=== PATIENT | female | born 1935 | race Caucasian/White ===

== ENCOUNTER 2016-12-16 03:47 | Inpatient (IN) | payer MEDICARE ==
[2016-12-16] VITALS (25 sets, daily range): BP systolic 75–120; BP diastolic 47–86; PULSE 102–165; RESP 16–20; TEMP 97.4–98.3; O2SAT 92–100
[~2016-12-16] VITALS: Ht 162.6 cm; Wt 90.0 kg
[~2016-12-16 03:47] MED LIST: AZOP1SUS RIGHT EYE; BUDE.25I INH; BYST10TA2 PO; DILT180C56 OR; DYAZ37.57 PO; FLON0.053; LUMI0.01 RIGHT EYE; RALO1TAB13 PO; RANI150T PO; STOO100T PO; TRAM50TA PO
--- NOTE | 2016-12-16 04:07 | PD ---
HPI Chief Complaint: Hip Injury Time Seen by Provider: 03:50 Travel History International Travel<30 days: No Contact w/Intl Traveler<30days: No Traveled to known affect area: No History of Present Illness HPI This is an 81-year-old female who presents to the emergency department having had a mechanical fall in her bathroom when she was going to empty out her outside commode. She is reporting severe pain in both of her hips, constant, worse with moving, improved with rest. She did not hit her head but she is on Eliquis. PFSH Past Medical History Arthritis: Yes Asthma: Yes Heart Rhythm Problems: Yes Cancer: No Cardiovascular Problems: Yes COPD: Yes Diminished Hearing: No Endocrine: No GERD: Yes Genitourinary: Yes (INCONTINENCE) Hypertension: Yes Immune Disorder: No Implanted Vascular Access Dvce: Yes Musculoskeletal: Yes Neurologic: Yes Psychiatric: No Reproductive: No Respiratory: Yes Ulcer: Yes Tetanus Vaccination: Unknown Influenza Vaccination: Yes Past Surgical History Abdominal Surgery: Yes (RORO) Body Medical Devices: AMANDA EYE LENS Joint Replacement: Yes (RT KNEE) Oral Surgery: Yes (T&A ; EGD) Social History Alcohol Use: No Tobacco Use: No Substance Use: No Allergies-Medications (Allergen,Severity, Reaction): Coded Allergies: Latex (Verified Allergy, Mild, SLIGHT REACTION TO LATEX BANDAIDE, 12/16/16) Reported Meds & Prescriptions Reported Meds & Active Scripts Active Reported Lumigan (Bimatoprost) 0.01 % Peg 1 Drop RIGHT EYE HS Azopt (Brinzolamide) 1 % Marjorie 1 Drop RIGHT EYE AM Pulmicort (Budesonide) 0.25 Mg/2 Ml Marjorie 0.25 Mg INH DAILY Flonase (Fluticasone Propionate) 0.05 % Naspr 2 Spr NA DAILYPRN 2 SPRAYS EACH NOSTRIL Tramadol Hcl (Tramadol HCl) 50 Mg Tab 50 Mg PO DIRECTED Ranitidine Hcl (Ranitidine HCl) 150 Mg Cap 150 Mg PO Diltiazem Cd (Diltiazem HCl) 180 Mg Cap 180 Mg OR DAILY Dyazide (Triamterene/HCTZ) 37.5 Mg/25 Mg Cap 37.5 - PO DAILY 37.5MG/25MG 1 TAB DAILY Bystolic (Nebivolol) 10 Mg Tab 10 Mg PO DAILY Evista (Raloxifene HCl) 60 Mg Tab 60 Mg PO DAILY Stool Softener-Docusate (Docusate Sodium) 100 Mg Cap 100 Mg PO DIRECTED Review of Systems Except as stated in HPI: all other systems reviewed are Neg Physical Exam Narrative GENERAL:Well appearing, no acute distress SKIN: Warm and dry. HEAD: Atraumatic. Normocephalic. EYES: Pupils equal and round. No injection or drainage. ENT: Moist mucous membranes NECK: Trachea midline. CARDIOVASCULAR: Regular rate and rhythm. No murmur appreciated. 1+ bilateral pitting edema. 2+ DP pulses bilaterally. RESPIRATORY: Clear to auscultation. Breath sounds equal bilaterally. GASTROINTESTINAL: Abdomen soft, non-tender, nondistended. MUSCULOSKELETAL: Pain with flexion of the right hip. Right lower extremity is shortened and rotated. NEUROLOGICAL: Awake and alert. No obvious cranial nerve deficits. Moving all extremities. PSYCHIATRIC: Appropriate mood and affect; insight and judgment normal. Data Data Last Documented VS Vital Signs Date Time Temp Pulse Resp B/P Pulse Ox O2 Delivery O2 Flow Rate FiO2 12/16/16 06:28 114 16 114/80 98 Room Air 12/16/16 03:51 97.9 Orders Complete Blood Count With Diff (12/16/16 03:50) Comprehensive Metabolic Panel (12/16/16 03:50) Prothrombin Time / Inr (Pt) (12/16/16 03:50) Act Partial Throm Time (Ptt) (12/16/16 03:50) Hip, Ap Only W Ap Pelvis (12/16/16 ) Knee, Ltd (1 Or 2vws) (12/16/16 ) Knee, Ltd (1 Or 2vws) (12/16/16 ) Electrocardiogram (12/16/16 ) Diltiazem Cd (Cardizem Cd) (12/16/16 04:30) Diltiazem Inj (Cardizem Inj) (12/16/16 05:30) Diltiazem Inj (Cardizem Inj) (12/16/16 06:15) Admit Order (Ed Use Only) (12/16/16 06:33) Labs Laboratory Tests Test 12/16/16 04:10 White Blood Count 9.3 TH/MM3 Red Blood Count 4.43 MIL/MM3 Hemoglobin 12.6 GM/DL Hematocrit 38.2 % Mean Corpuscular Volume 86.2 FL Mean Corpuscular Hemoglobin 28.4 PG Mean Corpuscular Hemoglobin 32.9 % Concent Red Cell Distribution Width 15.4 % Platelet Count 141 TH/MM3 Mean Platelet Volume 8.4 FL Neutrophils (%) (Auto) 73.3 % Lymphocytes (%) (Auto) 20.1 % Monocytes (%) (Auto) 5.1 % Eosinophils (%) (Auto) 0.9 % Basophils (%) (Auto) 0.6 % Neutrophils # (Auto) 6.8 TH/MM3 Lymphocytes # (Auto) 1.9 TH/MM3 Monocytes # (Auto) 0.5 TH/MM3 Eosinophils # (Auto) 0.1 TH/MM3 Basophils # (Auto) 0.1 TH/MM3 CBC Comment DIFF FINAL Differential Comment Prothrombin Time 12.8 SEC Prothromb Time International 1.2 RATIO Ratio Activated Partial 25.2 SEC Thromboplast Time Sodium Level 135 MEQ/L Potassium Level 4.2 MEQ/L Chloride Level 101 MEQ/L Carbon Dioxide Level 22.7 MEQ/L Anion Gap 11 MEQ/L Blood Urea Nitrogen 34 MG/DL Creatinine 2.35 MG/DL Estimat Glomerular Filtration 20 ML/MIN Rate Random Glucose 88 MG/DL Calcium Level 9.5 MG/DL Total Bilirubin 1.1 MG/DL Aspartate Amino Transf 20 U/L (AST/SGOT) Alanine Aminotransferase 13 U/L (ALT/SGPT) Alkaline Phosphatase 62 U/L Total Protein 7.5 GM/DL Albumin 3.9 GM/DL [facility] Medical Decision Making Medical Screen Exam Complete: Yes Emergency Medical Condition: Yes Interpretation(s) afebrile, tachycardic, normotensive no leukocytosis renal insufficiency ekg: atrial fibrillation with rvr xray hip: proximal femur fracture Differential Diagnosis Proximal femur fracture, hip dislocation, femur fracture, tibial fracture Narrative Course This is an 81-year-old female who presents to the emergency department having had a mechanical fall. She is placed on a monitor and an IV was established. She is found to be in atrial fibrillation with RVR. She not taken her home medications today. She doesn't have a medication list but in the past she's been on Cardizem 180 mg. She was given an oral dose of Cardizem initially but her pulse continued to be tachycardic. She was given a 15 mg IV diltiazem dose and then to 20 mg diltiazem dose. Her heart rate improved significantly. Labs were obtained which demonstrate renal insufficiency, uncertain of chronic. X- ray of the right hip demonstrates a proximal femur fracture around the patient' s hardware, of indeterminate age. I do suspect it's acute as this is the location of the patient's pain. I discussed the patient with Dr. Hagen who is on-call for Dr. Mendoza. Patient will be admitted to the hospital Critical Care Narrative Aggregate critical care time was 35 minutes. Time to perform other separately billable procedures was not included in the critical care time. My time did not include minutes spent treating any other patients simultaneously or on activities that did not directly contribute to the patient's treatment. The services I provided to this patient were to treat and/or prevent clinically significant deterioration that could result in: Disability, I provided critical care services requiring my management, as noted below: Chart data review, documentation time, medication orders and management, vital sign assessments/reviewing monitor data, ordering and reviewing lab tests, ordering and interpreting/reviewing x-rays and diagnostic studies, care of the patient and discussion of the patient with the admitting physicians. Diagnosis Primary Impression: Atrial fibrillation with RVR Additional Impression: Fracture, proximal femur Qualified Code: S72.001A - Fracture, proximal femur, right, closed, initial encounter Admitting Information Admitting Physician Requests: Admit Joaquina García MD Dec 16, 2016 04:07
[2016-12-16 04:24] LABS: AUTOMATED NEUTROPHIL # 6.8 TH/MM3 (1.8-7.7); BASOPHIL # 0.1 TH/MM3 (0-0.2); BASOPHIL % 0.6 % (0.0-2.0); EOSINOPHIL # 0.1 TH/MM3 (0-0.4); EOSINOPHIL % 0.9 % (0.0-4.0); HEMATOCRIT 38.2 % (35.0-46.0); HEMO FLAGS DIFF FINAL; LYMPH % 20.1 % (9.0-44.0); LYMPHOCYTE # 1.9 TH/MM3 (1.0-4.8); MEAN CELL VOLUME 86.2 FL (80.0-100.0); MEAN CORPUSCULAR HEMOGLOBIN 28.4 PG (27.0-34.0); MEAN CORPUSCULAR HGB CONC 32.9 % (32.0-36.0); MONO % 5.1 % (0.0-8.0); NEUT % 73.3 % (16.0-70.0); PLATELET COUNT 141 TH/MM3 (150-450); RED BLOOD COUNT 4.43 MIL/MM3 (4.00-5.30); RED CELL DISTRIBUTION WIDTH 15.4 % (11.6-17.2); WHITE BLOOD COUNT 9.3 TH/MM3 (4.0-11.0)
[2016-12-16] MEDS ORDERED: DILTIAZEM-CD 180 MG CAP ER PO ONE (04:30)
[2016-12-16 04:36] LABS: APTT (PATIENT) 25.2 SEC (24.3-30.1); INTERNATIONAL NORMALIZED RATIO 1.2 RATIO; PROTHROMBIN TIME - PATIENT 12.8 SEC (9.8-11.6)
[2016-12-16 04:41] LABS: ALKALINE PHOSPHATASE 62 U/L (45-117); TOTAL BILIRUBIN ADULT 1.1 MG/DL (0.2-1.0)
[2016-12-16 04:43] LABS: ALT (GPT) 13 U/L (10-53); ANION GAP 11 MEQ/L (5-15); AST (GOT) 20 U/L (15-37); BICARBONATE 22.7 MEQ/L (21.0-32.0); BLOOD UREA NITROGEN 34 MG/DL (7-18); CHLORIDE 101 MEQ/L (98-107); GLOMERULAR FILTRATION RATE 20 ML/MIN (>89); POTASSIUM 4.2 MEQ/L (3.5-5.1); SODIUM (NA) 135 MEQ/L (136-145)
--- NOTE | 2016-12-16 04:47 | RADRPT ---
EXAM DATE/TIME: 12/16/2016 04:08 [facility] COMPARISON: No previous studies available for comparison. INDICATIONS : Right leg pain post fall. MEDICAL HISTORY : None. SURGICAL HISTORY : Total knee replacement, right. Rt Hip Arthroplasty ENCOUNTER: Initial ACUITY: 1 day PAIN SCORE: 10/10 LOCATION: Right leg FINDINGS: 2 views of the right hip and pelvis. Right total hip prosthesis in place. There is a fracture of the proximal right femur. Lesser trochanter fragment measures 6.6 x 1.9 cm and is displaced medially 8 mm . Faint nondisplaced fracture line of the proximal femoral shaft laterally immediately adjacent to th e stem of the femoral component. Alignment of the prosthesis components within normal limits. CONCLUSION: Right total hip prosthesis in place. Age-indeterminate proximal femur fracture. David Samuel MD on December 16, 2016 at 4:42 Board Certified Radiologist. This report was verified electronically.
--- NOTE | 2016-12-16 04:49 | RADRPT ---
EXAM DATE/TIME: 12/16/2016 04:16 [facility] COMPARISON: No previous studies available for comparison. INDICATIONS : Left knee pain post fall. MEDICAL HISTORY : SURGICAL HISTORY : Total knee replacement, right. Rt Hip Arthroplasty ENCOUNTER: Initial ACUITY: 1 day PAIN SCORE: 3/10 LOCATION: Left knee FINDINGS: 2 views of the left knee. Bone alignment within normal limits. No evidence of fracture. Moderate-siz ed lateral compartment osteophytes. Small medial compartment and patellofemoral compartment osteophyt es. Chondrocalcinosis involving the menisci. Minimal lateral compartment narrowing. Mild patellofemor al department narrowing. No evidence of joint effusion. CONCLUSION: 1. No evidence of fracture. 2. Osteoarthritic findings of the knee with mild lateral compartment and patellofemoral compartment n arrowing. 3. Chondrocalcinosis of the menisci noted. David Samuel MD on December 16, 2016 at 4:45 Board Certified Radiologist. This report was verified electronically.
--- NOTE | 2016-12-16 04:50 | RADRPT ---
EXAM DATE/TIME: 12/16/2016 04:19 [facility] COMPARISON: No previous studies available for comparison. INDICATIONS : Right leg pain post fall. MEDICAL HISTORY : None. SURGICAL HISTORY : Total knee replacement, right. Rt Hip Arthroplasty ENCOUNTER: Initial ACUITY: 1 day PAIN SCORE: 10/10 LOCATION: Right leg FINDINGS: 2 views right knee. Right knee prosthesis in place. Bone alignment within normal limits. No evidence of fracture. CONCLUSION: Total knee prosthesis in place. Radiographs otherwise within normal limits. David Samuel MD on December 16, 2016 at 4:47 Board Certified Radiologist. This report was verified electronically.
[2016-12-16] MEDS ORDERED: DILTIAZEM HCL 25 MG/5 ML VIAL IV ONE ×2 (05:30→06:15)
[2016-12-16] MEDS ORDERED: ONDANSETRON HCL 4 MG/2 ML VIAL IVP PRN (07:00)
[2016-12-16] MEDS ORDERED: NALOXONE HCL 0.4 MG/ML AMP IV PRN (07:00)
[2016-12-16] MEDS ORDERED: SODIUM CHLORIDE 0.9% FLUSH 5 ML FLUSH FLUSH PRN (07:00)
[2016-12-16] MEDS ORDERED: ACETAMINOPHEN 325 MG TAB PO PRN (07:00)
[2016-12-16] MEDS: SODIUM CHLOR 0.9% 1000 ML INJ 1,000 ML IV SCH (07:44)
[2016-12-16] MEDS: DILTIAZEM INJ 125 MG in SODIUM CHLORIDE 0.9% INJ 100 ML IV SCH (07:45)
--- NOTE | 2016-12-16 10:12 | MH ---
cc: RUTH SPEARS MD DATE OF ADMISSION: 12/16/2016 DATE OF : 1935 REASON FOR ADMISSION Fall, right hip fracture. HISTORY OF PRESENT ILLNESS This is a pleasant 81-year-old white female who had been in her usual state of health up until last night. She got up to use the bedside commode. When she was finished she went to empty it in the bathroom and also recalls walking through her living area. When she was turning around in her bedroom she got her feet tangled up in the carpet and went down to the floor. She reported severe pain in both hips, right being worse than left. She did not have any type of dizziness or syncopal episode. The patient is on Eliquis and has a significant history of atrial fibrillation. When examined the patient was also noted to have a tachycardic irregular rhythm. Heart rate has been in the 140s and 150 range in the emergency room. The patient was bolused with Cardizem x2 and was also an 180 mg p.o. dose. Drip was started at 5 mg per hour at 0645. Between 0730 and 0745 the patient's blood pressure dropped to 75 systolic. The Cardizem drip was turned off and head of bed placed in Trendelenburg position. The patient is currently on IV fluids at 100 cc an hour. The fluids were increased and the patient now has a blood pressure greater than 90. The patient denies any chest pain. Denies any shortness of breath. Denies any headache. The patient was not using a walker at the time she fell. The patient denies any cough. No recent weight gain or weight loss. The patient denies any dysuria. Currently the patient is having pain in the right hip with any type of movement. She is alert, cooperative and a fair historian. PAST MEDICAL HISTORY According to the patient and the record: 1. COPD. 2. Cardiovascular disease. 3. Hypertension. 4. Urinary incontinence. 5. Arthritis. 6. Asthma. 7. History of atrial fibrillation. 8. GERD. 9. Osteoarthritis. PAST SURGICAL HISTORY 1. Cholecystectomy. 2. Bilateral cataracts. 3. Right knee replacement. 4. Right hip surgery. 5. Tonsillectomy. 6. Endoscopy. ALLERGIES LATEX. MEDICATIONS Medications reported: 1. Pulmicort. 2. Flonase. 3. Tramadol. 4. Zantac. 5. Cardizem CD. 6. Dyazide. 7. Bystolic. 8. Evista. 9. Stool softeners. 10.Lumigan. 11.Azopt SOCIAL HISTORY The patient is , currently lives in a condo alone with her black CAT. She denies any alcohol, tobacco or illicit drug use. Family members are out of town. Her closest relative she mentions is Amna Awad, her daughter who lives in [place]. REVIEW OF SYSTEMS A 12-point review was done. Positives include pain in her right hip and right leg, tachycardic rhythm uncontrolled, generalized weakness. Other systems are negative or unremarkable. PHYSICAL EXAMINATION VITAL SIGNS: Temperature 97.9, pulse labile, lowest rate being 113, highest rate being 165, respiratory rate 16, blood pressure now 94/65, has been as low as 75/47. O2 sat 98 on room air. GENERAL: An obese white female who looks to be her stated age resting in the bed. She is alert and able to answer simple questions. SKIN: Pale, warm and dry. CARDIOVASCULAR: S1, S2. Irregularly irregular tachycardic rhythm. Heart sounds are distant but no murmurs, rubs or gallops appreciated. She does have 1-2+ pitting edema in her lower extremities. PULMONARY: Essentially clear anteriorly and posteriorly with no wheezes, rales or rhonchi. ABDOMEN: Round, obese, soft, nontender. Active bowel sounds in all four quadrants. EXTREMITIES: She can move her upper extremities with purpose. She can overcome resistance. She can move the toes on her right foot and she can move her left leg, though slowly. NEUROLOGIC: She is awake, alert, oriented to person, place, time and situation with some occasional pleasant confusion over her situation. IMAGING DATA Hip and pelvic x-rays show right total hip prosthesis in place with a proximal femur fracture. Right knee x-ray shows total knee replacement on the right. Bone alignment within normal limits. No evidence of fracture. Left knee x-ray shows no evidence of fracture. Osteoarthritis. ASSESSMENT 1. Right hip fracture. 2. Atrial fibrillation uncontrolled with rapid ventricular response. 3. History of hypertension 4. Hypotension this admission. 5. GERD. 6. COPD. 7. History of cardiovascular disease. 8. Osteoarthritis. PLAN 1. Admit inpatient. 2. The patient will have vital signs every 1-4 hours depending on her needs and hospital course. 3. Labs will be monitored for any abnormal and treated. 4. Will consult cardiology for their expert opinion. The patient is now on a Cardizem drip and had some episodes of hypotension when the IV drip was started. Heart rate is still in the 140s to 150 and tachycardic, uncontrolled. 5. Will consult orthopedic surgery for their expert opinion. The patient is status post fall with right hip fracture. 6. The patient is currently n.p.o., gentle hydration with IV fluids. 7. Will reconcile her medications. 8. DVT prophylaxis with SCD on the non-operative leg. 9. PUD prophylaxis with IV Pepcid. 10.Currently the patient will be on bedrest and we will follow. Dictated by: JOSE Davila MD RJ Pham/BT /7:15 AM /11:01 AM pt is seen & examined chart reviewed d/w PT in detail d/w Laura d/tiera aleman dw RN see H&P see Orders s/p fall periprosthetic femur fx ARF, dehydration /pre renal azotemia Ch A fib w RVR Obesity COPD will f/u Ruth Spears MD Dec 16, 2016 16:57 MTDD
[2016-12-16] MEDS: FAMOTIDINE 20 MG/2 ML VIAL IV PUSH SCH ×2 (12:45→21:33)
[2016-12-16] MEDS ORDERED: DIGOXIN 0.5 MG/2 ML VIAL IV PUSH ONE (14:45)
[2016-12-16] MEDS ORDERED: SODIUM CHLORID 0.9% 500 ML INJ 500 ML IV SCH (15:00)
--- NOTE | 2016-12-16 15:31 | EKG ---
Date Performed: 12/16/2016 Time Performed: 04:31:57 PTAGE: 81 years EKG: ATRIAL FIBRILLATION WITH RAPID VENTRICULAR RESPONSE LOW QRS VOLTAGE Compared to the previou s tracing the patient has developed atrial fibrillation with a rapid v. response ABNORMAL ECG PREVIOUS TRACING : 07/04/2011 09.06 DOCTOR: Kiana Felix Interpretating Date/Time 12/16/2016 15:30:26
--- NOTE | 2016-12-16 16:57 | HHI.PR ---
Objective Objective Results - Vital Signs Date Time Temp Pulse Resp B/P Pulse Ox O2 Delivery O2 Flow Rate FiO2 12/16/16 15:15 97.4 133 20 85/63 96 12/16/16 15:01 134 12/16/16 14:00 136 12/16/16 13:01 133 12/16/16 12:00 138 12/16/16 11:01 98.0 140 18 90/57 100 12/16/16 11:00 140 12/16/16 10:00 132 12/16/16 08:45 97.6 110 18 107/64 92 12/16/16 08:35 130 16 110/77 97 Room Air 12/16/16 08:29 98.3 130 16 101/76 97 Room Air 12/16/16 07:51 115 16 94/65 98 Room Air 12/16/16 07:43 113 20 84/59 98 Room Air 12/16/16 07:35 156 20 75/47 98 Room Air 12/16/16 06:28 114 16 114/80 98 Room Air 12/16/16 03:54 147 16 98 Room Air 12/16/16 03:51 97.9 147 16 120/86 98 Result Diagram: 12/16/16 0410 12/16/16 0410 Other Results Laboratory Tests Test 12/16/16 04:10 White Blood Count 9.3 Red Blood Count 4.43 Hemoglobin 12.6 Hematocrit 38.2 Mean Corpuscular Volume 86.2 Mean Corpuscular Hemoglobin 28.4 Mean Corpuscular Hemoglobin 32.9 Concent Red Cell Distribution Width 15.4 Platelet Count 141 Mean Platelet Volume 8.4 Neutrophils (%) (Auto) 73.3 Lymphocytes (%) (Auto) 20.1 Monocytes (%) (Auto) 5.1 Eosinophils (%) (Auto) 0.9 Basophils (%) (Auto) 0.6 Neutrophils # (Auto) 6.8 Lymphocytes # (Auto) 1.9 Monocytes # (Auto) 0.5 Eosinophils # (Auto) 0.1 Basophils # (Auto) 0.1 CBC Comment DIFF FINAL Differential Comment Prothrombin Time 12.8 Prothromb Time International 1.2 Ratio Activated Partial 25.2 Thromboplast Time Sodium Level 135 Potassium Level 4.2 Chloride Level 101 Carbon Dioxide Level 22.7 Anion Gap 11 Blood Urea Nitrogen 34 Creatinine 2.35 Estimat Glomerular Filtration 20 Rate Random Glucose 88 Calcium Level 9.5 Total Bilirubin 1.1 Aspartate Amino Transf 20 (AST/SGOT) Alanine Aminotransferase 13 (ALT/SGPT) Alkaline Phosphatase 62 Total Protein 7.5 Albumin 3.9 A/P Assessment and Plan pt is seen & examined chart reviewed d/w PT in detail d/w Laura d/w Dr ash brown RN see H&P see Orders s/p fall periprosthetic femur fx ARF, dehydration /pre renal azotemia Ch A fib w RVR Obesity COPD will f/u Otis Spears MD Dec 16, 2016 16:57
[2016-12-16] MEDS ORDERED: [UNRECOGNIZED DRUG - OTHER] PO SCH (17:00)
[2016-12-16] MEDS ORDERED: SODIUM CHLORID 0.9% 500 ML INJ 500 ML IV ONE (17:00)
[2016-12-16 18:51] LABS: BACTERIA, URINE FEW /hpf; BLOOD, URINE MOD (NEG); COMMENT (UR) CULTURE INDICATED; CULTURE IF INDICATED CULTURE INDICATED; GLUCOSE,URINE NEG (NEG); KETONE, URINE 10 mg/dL (NEG); NITRITE,URINE NEG (NEG); SQUAMOUS EPITHELIAL CELL URINE 6 /hpf (0-5); URINE COLOR YELLOW (YELLW/STRAW)
--- NOTE | 2016-12-16 20:18 | MB ---
cc: JOSIE LINDER M.D. DATE OF CONSULTATION 12/16/[address] Spears REASON FOR CONSULTATION Atrial fibrillation. HISTORY OF THE PRESENT ILLNESS The patient is an 81-year-old female who is known to me. She states that she was up, going to the bathroom and got her foot tangled in some carpet. She then fell and has a fracture of the right hip. She states that she did not have any chest pain, palpitations or dizziness and did not have loss of consciousness. She was found to be in atrial fib with a heart rate between 140 and 150. She does have a history of atrial fibrillation. She has normally been on Bystolic 10 mg a day and Diltiazem 180 mg a day. It was possible that her primary decreased the dose of Bystolic to 5 mg a day. I have felt that the patient has had an accessory pathway and her heart. She does have a history of chronic bronchitis. She has been on Eliquis 2.5 mg twice a day. She does not have a history of diagnosed coronary artery disease. Echocardiogram in August of 2015 showed a 55-60% ejection fraction. She did have a nuclear stress test in 1998 which was negative for ischemia. PAST SURGICAL HISTORY 1. Surgery, she has had prior right knee replacement. 2. Bilateral carpal tunnel surgery. 3. Cholecystectomy. 4. Tonsillectomy. 5. And a shoulder replacement. 6. She states she has also had right hip surgery. She sees Dr. Purcell for her lung problems. FAMILY HISTORY Father of leukemia at the age of 57. Her mother of stroke at the age of 75. SOCIAL HISTORY She stopped smoking in 1979. She is and lives alone. She does not drink alcohol. REVIEW OF SYSTEMS She has had a mild weight loss, though she remains overweight. HEENT: No change in hearing. No nosebleeds. LUNGS: Positive for bronchitis. No hemoptysis. GASTROINTESTINAL: No rectal bleeding. No history of ulcers. GENITOURINARY: No hematuria. No kidney stones. PSYCHIATRIC: No depression. ENDOCRINE: No diabetes. No thyroid problems. PHYSICAL EXAMINATION GENERAL: On examination pleasant, cooperative, elderly female who is resting comfortably in no acute distress. VITAL SIGNS: Heart rate is around 120 and irregular. Blood pressure is 90/57. HEENT: Pupils reactive to light. Fundi not examined. The tongue is moist and midline. LUNGS: She has some slight wheeze in the lungs. CARDIOVASCULAR: Exam shows a rapid rhythm. No murmurs noted. ABDOMEN: The abdomen is soft. EXTREMITIES: She has no peripheral edema. LABORATORY Showed hemoglobin of 12.6, hematocrit 38.2. Sodium 135, potassium 4.2, BUN is 34, creatinine is 2.35 with a GFR of 20, blood sugar is 88. IMAGING X-rays show a fracture of the proximal right femur. The right hip prosthesis is in place. IMPRESSION 1. Right hip fracture. 2. Chronic kidney disease. 3. Persistent atrial fibrillation. 4. COPD. 5. History of hypertension. DISCUSSION AND RECOMMENDATIONS The patient normally sees Dr. Zbigniew Palmer for kidney disease. The last creatinine in my records is 1.3. The elevated creatinine at this time is consistent with dehydration. I have discussed this with Dr. Spears and she will receive increased fluids to see if it raises her blood pressure. Digoxin can be used at this time for rate control if necessary. If blood pressure normalizes, then she can be started back on her Bystolic as well as her diltiazem. This can be restarted after her hip surgery. Thank you for asking us to see her. MD BESSIE Moreira/FERNANDO /4:28 PM /7:02 PM
[2016-12-16] MEDS: cefTRIAXone INJ 1,000 MG in SODIUM CHLORIDE 0.9% INJ 100 ML IV SCH (21:32)
[2016-12-16] MEDS: LATANOPROST 0.005% OPHT SOLN 2.5 ML BTL RIGHT EYE SCH (21:39)
[2016-12-17] VITALS (28 sets, daily range): BP systolic 99–123; BP diastolic 60–76; PULSE 111–145; RESP 16–22; TEMP 97.6–98; O2SAT 96–100
[2016-12-17] MEDS: SODIUM CHLORIDE 0.9% FLUSH 5 ML FLUSH FLUSH SCH ×3 (01:19→21:56)
[2016-12-17] MEDS: SODIUM CHLOR 0.9% 1000 ML INJ 1,000 ML IV SCH ×2 (01:20→12:14)
[2016-12-17] MEDS ORDERED: DIGOXIN 0.5 MG/2 ML VIAL IV PUSH ONE (05:30)
[2016-12-17 06:47] LABS: AUTOMATED NEUTROPHIL # 8.4 TH/MM3 (1.8-7.7); BASOPHIL # 0.1 TH/MM3 (0-0.2); BASOPHIL % 0.9 % (0.0-2.0); EOSINOPHIL # 0.2 TH/MM3 (0-0.4); EOSINOPHIL % 2.1 % (0.0-4.0); HEMATOCRIT 33.2 % (35.0-46.0); HEMO FLAGS DIFF FINAL; LYMPH % 12.1 % (9.0-44.0); LYMPHOCYTE # 1.3 TH/MM3 (1.0-4.8); MEAN CELL VOLUME 85.6 FL (80.0-100.0); MEAN CORPUSCULAR HEMOGLOBIN 28.1 PG (27.0-34.0); MEAN CORPUSCULAR HGB CONC 32.9 % (32.0-36.0); MONO % 5.1 % (0.0-8.0); NEUT % 79.8 % (16.0-70.0); PLATELET COUNT 136 TH/MM3 (150-450); RED BLOOD COUNT 3.88 MIL/MM3 (4.00-5.30); RED CELL DISTRIBUTION WIDTH 15.3 % (11.6-17.2); WHITE BLOOD COUNT 10.5 TH/MM3 (4.0-11.0)
[2016-12-17 07:08] LABS: BICARBONATE 24.2 MEQ/L (21.0-32.0)
[2016-12-17] MEDS: RESP: BUDESONIDE 0.25 MG/2 ML NEB INH SCH (08:19)
[2016-12-17] MEDS: FLUTICASONE PROPIONATE 50 MCG/ACT 16 GM NASAL SPRAY SCH (08:43)
[2016-12-17] MEDS: FAMOTIDINE 20 MG/2 ML VIAL IV PUSH SCH ×2 (08:44→21:16)
[2016-12-17] MEDS: BRINZOLAMIDE RIGHT EYE SCH (09:00)
--- NOTE | 2016-12-17 11:12 | PD.ORT.PN ---
Subjective Subjective Remarks FULL CONSULT NOTE TO FOLLOW 81yo s/p fall right hip pain. s/o right GALEN Objective Vitals Vital Signs Date Time Temp Pulse Resp B/P Pulse Ox O2 Delivery O2 Flow Rate FiO2 12/17/16 08:30 97.6 145 18 118/76 100 12/17/16 06:00 138 12/17/16 05:00 138 12/17/16 04:00 136 12/17/16 03:00 97.6 116 16 99/63 96 12/17/16 03:00 122 12/17/16 02:00 128 12/17/16 01:00 116 12/17/16 00:00 112 12/16/16 23:00 114 12/16/16 23:00 97.8 114 16 104/53 96 12/16/16 22:00 102 12/16/16 21:00 106 12/16/16 20:00 116 12/16/16 19:45 98.0 107 16 113/51 98 12/16/16 19:00 134 12/16/16 18:00 120 12/16/16 17:00 130 12/16/16 16:00 128 12/16/16 15:15 97.4 133 20 85/63 96 12/16/16 15:01 134 12/16/16 14:00 136 12/16/16 13:01 133 12/16/16 12:00 138 I/O 12/16/16 12/16/16 12/16/16 12/17/16 12/17/16 12/17/16 07:00 15:00 23:00 07:00 15:00 23:00 Intake Total 2480 ml 965 ml Output Total 450 ml 425 ml Balance 2030 ml 540 ml Intake Oral 480 ml 240 ml IV Total 2000 ml 725 ml Output Urine Total 450 ml 425 ml # Bowel Movements 0 0 Result Diagram: 12/17/16 0620 12/17/16 0622 Objective Remarks RLE: grossly nvi. + log roll, SILT distally, 2+ PT/DP xrays reviewed. proximal metaphyseal minimally displaced periprosthetic fx Assessment & Plan Assessment and Plan right proximal femur minimally displaced periprosthetic fx Trial of nonop treatment- NWB RLE reg diet f/u outpatient 2 weeks- Aaron Tobar Jr., MD Dec 17, 2016 11:12
[2016-12-17] MEDS: ACETAMINOPHEN/HYDROcodone 325 MG/7.5 MG TAB PO PRN ×2 (14:15→21:17)
--- NOTE | 2016-12-17 15:51 | HHI.PR ---
Subjective History of Present Illness Patient confused/slightly agitated Don't know where she is , calling for her sister No chest pain No shortness of breath No nausea or vomiting Abdominal pain Appetite is okay Offers no complaints Vitals/Results Intake & Output 12/16/16 12/16/16 12/17/16 15:00 23:00 07:00 Intake Total 2480 ml 965 ml Output Total 450 ml 425 ml Balance 2030 ml 540 ml Intake Oral 480 ml 240 ml IV Total 2000 ml 725 ml Output Urine Total 450 ml 425 ml # Bowel Movements 0 0 Vital Signs Vital Signs Date Time Temp Pulse Resp B/P Pulse Ox O2 Delivery O2 Flow Rate FiO2 12/17/16 12:01 132 12/17/16 11:30 98.0 145 20 123/72 100 12/17/16 11:00 134 12/17/16 10:00 136 12/17/16 09:00 134 12/17/16 08:30 97.6 145 18 118/76 100 12/17/16 08:00 136 12/17/16 07:00 132 12/17/16 06:00 138 12/17/16 05:00 138 12/17/16 04:00 136 12/17/16 03:00 97.6 116 16 99/63 96 12/17/16 03:00 122 12/17/16 02:00 128 12/17/16 01:00 116 12/17/16 00:00 112 12/16/16 23:00 114 12/16/16 23:00 97.8 114 16 104/53 96 12/16/16 22:00 102 12/16/16 21:00 106 12/16/16 20:00 116 12/16/16 19:45 98.0 107 16 113/51 98 12/16/16 19:00 134 12/16/16 18:00 120 12/16/16 17:00 130 12/16/16 16:00 128 CBC/BMP: 12/17/16 0620 12/17/16 0622 Lab Results Laboratory Tests Test 12/16/16 12/17/16 12/17/16 17:45 06:20 06:22 Urine Color YELLOW Urine Turbidity CLOUDY Urine pH 6.0 Urine Specific [place] 1.020 Urine Protein 100 mg/dL Urine Glucose (UA) NEG mg/dL Urine Ketones 10 mg/dL Urine Occult Blood MOD Urine Nitrite NEG Urine Bilirubin NEG Urine Urobilinogen LESS THAN 2.0 MG/DL Urine Leukocyte Esterase LARGE Urine RBC 13 /hpf Urine WBC /hpf Urine WBC Clumps MANY Urine Squamous Epithelial 6 /hpf Cells Urine Bacteria FEW /hpf Microscopic Urinalysis Comment CULTURE INDICATED White Blood Count 10.5 TH/MM3 Red Blood Count 3.88 MIL/MM3 Hemoglobin 10.9 GM/DL Hematocrit 33.2 % Mean Corpuscular Volume 85.6 FL Mean Corpuscular Hemoglobin 28.1 PG Mean Corpuscular Hemoglobin 32.9 % Concent Red Cell Distribution Width 15.3 % Platelet Count 136 TH/MM3 Mean Platelet Volume 8.1 FL Neutrophils (%) (Auto) 79.8 % Lymphocytes (%) (Auto) 12.1 % Monocytes (%) (Auto) 5.1 % Eosinophils (%) (Auto) 2.1 % Basophils (%) (Auto) 0.9 % Neutrophils # (Auto) 8.4 TH/MM3 Lymphocytes # (Auto) 1.3 TH/MM3 Monocytes # (Auto) 0.5 TH/MM3 Eosinophils # (Auto) 0.2 TH/MM3 Basophils # (Auto) 0.1 TH/MM3 CBC Comment DIFF FINAL Differential Comment Sodium Level 141 MEQ/L Potassium Level 4.0 MEQ/L Chloride Level 107 MEQ/L Carbon Dioxide Level 24.2 MEQ/L Anion Gap 10 MEQ/L Blood Urea Nitrogen 30 MG/DL Creatinine 1.74 MG/DL Estimat Glomerular Filtration 28 ML/MIN Rate Random Glucose 84 MG/DL Calcium Level 8.3 MG/DL Microbiology Microbiology 12/16/16 Urine Culture - Preliminary, Resulted Proteus Species Physical Exam General General Appearance: No Acute Distress, Comfortable Eyes Eye Exam: Pupils Equal, Sclera White Ears & Nose Ears & Nose Exam: Nasal Mucosa [place] Throat Throat Exam: Oral Mucosa [place] & Moist Neck Neck Exam: Neck Supple, Trachea Midline Pulmonary Resp Exam: Clear Bilaterally, Breath Sounds Equal Cardiology CV Exam: Irregular, Arrhythmia, Tachycardia Gastrointestinal/Abdomen GI Exam: Soft, Non-Tender, Bowel Sounds Present Musculoskeletal MS Remarks Mild swelling over the right hip/right thigh, positive tenderness. Both feet are warm to touch Integumentary Skin Exam: Warm, Dry Extremeties Extremities Exam: No Edema, Pedal Pulses Palpable Neurologic Neuro Exam: Alert, Awake, Speech Clear, Moving All Extremities Neuro Remarks Forgetful and confused Assessment/Plan Assessment/Plan ASSESSMENT 1. Right hip fracture. 2. Atrial fibrillation uncontrolled with rapid ventricular response. 3. History of hypertension 4. Hypotension this admission. 5. GERD. 6. COPD. 7. History of cardiovascular disease. 8. Osteoarthritis. 9. ARF / CKD , acute comp d/t dehydration , pre renal azotemia 10.UTI Plan Continue IV fluids Resume Bystolic/ and a dose of digoxin Monitor heart rate and blood pressure Card input appreciated IV analgesics Orthopedic consult noted/non-operative care is recommended. Subcutaneous Lovenox for DVT prophylaxis, adjust to creatinine clearance Urine culture, Proteus, sensitivity pending Continue IV Rocephin, follow sensitivity and adjust antibiotic. DC Pandey catheter, watch for voiding Pepcid for GI protection Haldol when necessary for agitation phlebotomy services technician for discharge planning/possible DC to SNF in few days Discussed with RN Discussed with social service assistant Otis Spears MD Dec 17, 2016 15:51
[2016-12-17] MEDS: DILTIAZEM-CD 180 MG CAP ER PO SCH (17:48)
[2016-12-17] MEDS: ENOXAPARIN SODIUM 30 MG/0.3 ML SYRINGE SQ SCH (17:48)
[2016-12-17] MEDS: cefTRIAXone INJ 1,000 MG in SODIUM CHLORIDE 0.9% INJ 100 ML IV SCH (21:16)
[2016-12-17] MEDS: LATANOPROST 0.005% OPHT SOLN 2.5 ML BTL RIGHT EYE SCH (21:16)
[2016-12-17] MEDS: NEBIVOLOL 10 MG TAB PO SCH (21:17)
--- NOTE | 2016-12-17 22:05 | PD.CONS ---
cc: Aaron Greer Jr., MD [facility] Service Orthopedic Surgeons Consult Requested By Primary Care Physician Roselyn Amador Admission Diagnosis atrial fibrillation, femur fracture Diagnoses: Chief Complaint: right hip pain History of Present Illness 81yo female fell after using the bedside commode. She tripped on the carpet. She reported immediate right hip pain with inability to bear weight. Pain 8 out of 10, exacerbated by range of motion, relieved at rest, not associated with paresthesia or numbness, pain nonradiating. She did not have any type of dizziness or syncopal episode. The patient is on Eliquis and has a significant history of atrial fibrillation. The patient denies any chest pain. Denies any shortness of breath. Denies any headache. The patient was not using a walker at the time she fell. The patient denies any cough. No recent weight gain or weight loss. The patient denies any dysuria. PAST MEDICAL HISTORY According to the patient and the record: 1. COPD. 2. Cardiovascular disease. 3. Hypertension. 4. Urinary incontinence. 5. Arthritis. 6. Asthma. 7. History of atrial fibrillation. 8. GERD. 9. Osteoarthritis. PAST SURGICAL HISTORY 1. Cholecystectomy. 2. Bilateral cataracts. 3. Right knee replacement. 4. Right hip surgery. 5. Tonsillectomy. 6. Endoscopy. ALLERGIES LATEX. MEDICATIONS Medications reported: 1. Pulmicort. 2. Flonase. 3. Tramadol. 4. Zantac. 5. Cardizem CD. 6. Dyazide. 7. Bystolic. 8. Evista. 9. Stool softeners. 10.Lumigan. 11.Azopt SOCIAL HISTORY The patient is , currently lives in a condo alone with her black CAT. She denies any alcohol, tobacco or illicit drug use. Family members are out of town. Her closest relative she mentions is Amna Awad, her daughter who lives in [place]. REVIEW OF SYSTEMS A 12-point review was done. Positives include pain in her right hip and right leg, tachycardic rhythm uncontrolled, generalized weakness. Other systems are negative or unremarkable. Review of Systems Endocrine: DENIES: Abnorml menstrual pattern, Heat/cold intolerance, Polydipsia , Polyuria, Polyphagia Eyes: DENIES: Blurred vision, Diplopia, Eye inflammation, Eye pain, Vision loss , Photosensitivity, Double Vision Respiratory: DENIES: Apneas, Cough, Snoring, Wheezing, Hemoptysis, Sputum production, Shortness of breath Gastrointestinal: DENIES: Abdominal pain, Black stools, Bloody stools, Constipation, Diarrhea, Nausea, Vomiting, Difficulty Swallowing, Anorexia Genitourinary: DENIES: Abnormal vaginal bleeding, Dysmenorrhea, Dyspareunia, Sexual dysfunction, Urinary frequency, Urinary incontinence, Urgency, Hematuria , Dysuria, Nocturia, Vaginal discharge Hematologic/lymphatic: DENIES: Bruising, Lymphadenopathy Past Family Social History Allergies: Coded Allergies: Latex (Verified Allergy, Mild, SLIGHT REACTION TO LATEX BANDAIDE, 12/16/16) Active Ordered Medications Current Medications Medications (Trade) Dose Ordered Sig/Cari Route Start Time Stop Time Status Last Admin Diltiazem HCl 125 mg/Sodium Chloride 125 ml @ 0 mls/hr TITRATE IV 12/16/16 06:45 Hold 12/16/16 07:45 (NS 1000 ml Inj) 1,000 ml @ 100 mls/hr Q10H IV 12/16/16 07:00 12/17/16 12:14 (NS Flush) 2 ml UNSCH PRN FLUSH 12/16/16 07:00 (NS Flush) 2 ml BID FLUSH 12/16/16 09:00 12/17/16 21:56 (Tylenol) 650 mg Q4H PRN PO 12/16/16 07:00 12/16/16 12:44 (Zofran Inj) 4 mg Q6H PRN IVP 12/16/16 07:00 (Narcan Inj) 0.4 mg UNSCH PRN IV 12/16/16 07:00 (Pepcid Inj) 10 mg Q12H IV PUSH 12/16/16 09:00 12/17/16 21:16 (Flonase [place] Spr) 1 spray DAILY NA 12/17/16 09:00 12/17/16 08:43 (Xalatan 0.005% Opth Soln) 1 drop HS RIGHT EYE 12/16/16 21:00 12/17/16 21:16 Patient Own Medication PT OWN MED: Brinzolamide (Azopt... DAILY RIGHT EYE 12/17/16 09:00 (Rocephin Inj/NS Inj) 100 ml @ 200 mls/hr Q24H IV 12/16/16 20:00 12/17/16 21:16 ([place] 7.5-325 Mg) 1 tab Q4H PRN PO 12/16/16 19:15 12/17/16 21:17 (Cardizem Cd) 180 mg DAILY PO 12/17/16 17:00 12/17/16 17:48 (Bystolic) 10 mg DAILY PO 12/17/16 20:51 12/17/16 21:17 (Lovenox Inj) 30 mg Q24H SQ 12/17/16 17:00 12/17/16 17:48 Reported Meds & Active Scripts Active Reported Lumigan (Bimatoprost) 0.01 % Peg 1 Drop RIGHT EYE HS Azopt (Brinzolamide) 1 % Marjorie 1 Drop RIGHT EYE AM Pulmicort (Budesonide) 0.25 Mg/2 Ml Marjorie 0.25 Mg INH DAILY Flonase (Fluticasone Propionate) 0.05 % Naspr 2 Spr NA DAILYPRN 2 SPRAYS EACH NOSTRIL Tramadol Hcl (Tramadol HCl) 50 Mg Tab 50 Mg PO DIRECTED Ranitidine 150 mg (Ranitidine HCl) 150 Mg Cap 150 Mg PO Diltiazem Cd 180 mg 180 Mg Cap 180 Mg OR DAILY Dyazide (Triamterene/HCTZ) 37.5 Mg/25 Mg Cap 37.5 - PO DAILY 37.5MG/25MG 1 TAB DAILY Bystolic (Nebivolol) 10 Mg Tab 10 Mg PO DAILY Evista (Raloxifene HCl) 60 Mg Tab 60 Mg PO DAILY Stool Softener (Miscellaneous Medication) 100 Mg Cap 100 Mg PO DIRECTED Physical Exam Vital Signs Vital Signs Date Time Temp Pulse Resp B/P Pulse Ox O2 Delivery O2 Flow Rate FiO2 12/17/16 18:01 126 12/17/16 17:01 120 12/17/16 16:01 128 12/17/16 15:45 97.8 111 18 122/60 100 12/17/16 15:30 16 12/17/16 15:00 128 12/17/16 14:00 128 12/17/16 13:00 124 12/17/16 12:01 132 12/17/16 11:30 98.0 145 20 123/72 100 12/17/16 11:00 134 12/17/16 10:00 136 12/17/16 09:00 134 12/17/16 08:30 97.6 145 18 118/76 100 12/17/16 08:00 136 12/17/16 07:00 132 12/17/16 06:00 138 12/17/16 05:00 138 12/17/16 04:00 136 12/17/16 03:00 97.6 116 16 99/63 96 12/17/16 03:00 122 12/17/16 02:00 128 12/17/16 01:00 116 12/17/16 00:00 112 12/16/16 23:00 114 12/16/16 23:00 97.8 114 16 104/53 96 Physical Exam Demented. Head: Neck normocephalic atraumatic. Trachea midline. Pulmonary: normal respiratory effort. Abdomen: soft nontender Musculoskeletal exam Bilateral upper extremity- neurovascular intact. No deformities. Right lower extremity- neurovascular intact. No deformities. Intact sensation distally. 2+ palpable dorsalis pedis and posterior tibial pulses. Soft compartments. Negative Homans. Positive logroll of the RIGHT hip. Painful range of motion with crepitus in the RIGHT hip. No instability felt. Mildly tender along the lateral greater trochanter. LEFT lower extremity - no deformities. Gross neurovascular intact. Laboratory Laboratory Tests Test 12/17/16 12/17/16 06:20 06:22 White Blood Count 10.5 Red Blood Count 3.88 Hemoglobin 10.9 Hematocrit 33.2 Mean Corpuscular Volume 85.6 Mean Corpuscular Hemoglobin 28.1 Mean Corpuscular Hemoglobin 32.9 Concent Red Cell Distribution Width 15.3 Platelet Count 136 Mean Platelet Volume 8.1 Neutrophils (%) (Auto) 79.8 Lymphocytes (%) (Auto) 12.1 Monocytes (%) (Auto) 5.1 Eosinophils (%) (Auto) 2.1 Basophils (%) (Auto) 0.9 Neutrophils # (Auto) 8.4 Lymphocytes # (Auto) 1.3 Monocytes # (Auto) 0.5 Eosinophils # (Auto) 0.2 Basophils # (Auto) 0.1 CBC Comment DIFF FINAL Differential Comment Sodium Level 141 Potassium Level 4.0 Chloride Level 107 Carbon Dioxide Level 24.2 Anion Gap 10 Blood Urea Nitrogen 30 Creatinine 1.74 Estimat Glomerular Filtration 28 Rate Random Glucose 84 Calcium Level 8.3 Date/Time Procedure Status Source Growth 12/16/16 17:45 Urine Culture - Preliminary Resulted Urine Clean Catch Proteus Species Result Diagram: 12/17/16 0620 12/17/16 0622 Imaging Last 72 hours Impressions Knee X-Ray 12/16/16 0000 Signed Impressions: Service Date/Time: Friday, December 16, 2016 04:16 - CONCLUSION: 1. No evidence of fracture. 2. Osteoarthritic findings of the knee with mild lateral compartment and patellofemoral compartment narrowing. 3. Chondrocalcinosis of the menisci noted. David Samuel MD Knee X-Ray 12/16/16 0000 Signed Impressions: Service Date/Time: Friday, December 16, 2016 04:19 - CONCLUSION: Total knee prosthesis in place. Radiographs otherwise within normal limits. 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 Age-indeterminate proximal femur fracture. David Samuel MD Assessment & Plan Assessment and Plan 81-year-old female with history of dementia and previous RIGHT hip arthroplasty replacement Presented to emergency department after a fall complaining of RIGHT LE pain. She is neurovascular intact, has pain with attempted range of motion of the RIGHT lower extremity. X-ray examination revealed minimally displaced metaphyseal periProsthetic fracture of the RIGHT proximal femur of age indeterminate. It is likely this fracture line may have been there prior to this recent fall. X-ray examination does reveal the prosthesis is in place and stable. I recommended nonoperative treatment. No weightbearing RIGHT lower extremity for about 4 weeks. No range of motion RIGHT LE. F/u outpatient 2 weeks- Dr Greer. Thank you for the consult. Please call with questions. Aaron Greer Jr., MD Dec 17, 2016 22:05
[2016-12-18] VITALS (28 sets, daily range): BP systolic 100–114; BP diastolic 66–86; PULSE 104–135; RESP 18–22; TEMP 97.5–97.8; O2SAT 95–100
[2016-12-18] MEDS: DILTIAZEM INJ 125 MG in SODIUM CHLORIDE 0.9% INJ 100 ML IV SCH (00:21)
[2016-12-18] MEDS: ACETAMINOPHEN/HYDROcodone 325 MG/7.5 MG TAB PO PRN ×2 (03:53→12:10)
[2016-12-18 06:22] LABS: HEMATOCRIT 33.1 % (35.0-46.0); MEAN CORPUSCULAR HEMOGLOBIN 27.7 PG (27.0-34.0); MEAN CORPUSCULAR HGB CONC 32.2 % (32.0-36.0); PLATELET COUNT 147 TH/MM3 (150-450); RED BLOOD COUNT 3.85 MIL/MM3 (4.00-5.30); REVIEW FLAG FINAL; WHITE BLOOD COUNT 11.1 TH/MM3 (4.0-11.0)
[2016-12-18 06:50] LABS: BICARBONATE 21.8 MEQ/L (21.0-32.0)
[2016-12-18] MEDS: RESP: BUDESONIDE 0.25 MG/2 ML NEB INH SCH (07:09)
[2016-12-18] MEDS: SODIUM CHLOR 0.9% 1000 ML INJ 1,000 ML IV SCH ×2 (08:01→18:59)
[2016-12-18] MEDS: DILTIAZEM-CD 180 MG CAP ER PO SCH (08:46)
[2016-12-18] MEDS: FLUTICASONE PROPIONATE 50 MCG/ACT 16 GM NASAL SPRAY SCH (08:46)
[2016-12-18] MEDS: NEBIVOLOL 10 MG TAB PO SCH (08:46)
[2016-12-18] MEDS: FAMOTIDINE 20 MG/2 ML VIAL IV PUSH SCH ×2 (08:47→20:44)
[2016-12-18] MEDS: SODIUM CHLORIDE 0.9% FLUSH 5 ML FLUSH FLUSH SCH ×2 (08:50→21:00)
[2016-12-18] MEDS: BRINZOLAMIDE RIGHT EYE SCH (09:00)
--- NOTE | 2016-12-18 09:50 | HHI.PR ---
Subjective Subjective Remarks Alert Pleasant confusion, but has attempted to pull out lines Soft wrist restraints on, family aware Denies any pain or shortness of breath (Laura Oneill) Review of Systems Constitutional Constitutional: Weakness (generalized) Constitutional Remarks Unable to obtain accurate ROS due to patient's altered mental status (Laura Oneill) Vitals/Results Intake & Output 12/17/16 12/17/16 12/18/16 15:00 23:00 07:00 Intake Total 1850 ml 1440 ml Output Total 650 ml 280 ml Balance 1200 ml 1160 ml Intake Oral 480 ml 240 ml IV Total 1370 ml 1200 ml Output Urine Total 650 ml 280 ml # Bowel Movements 0 Vital Signs Vital Signs Date Time Temp Pulse Resp B/P Pulse Ox O2 Delivery O2 Flow Rate FiO2 12/18/16 08:16 97.8 133 18 100/75 97 12/18/16 08:16 123 12/18/16 07:00 111 12/18/16 06:59 18 12/18/16 05:00 107 12/18/16 04:00 114 12/18/16 03:00 132 12/18/16 02:59 117 22 111/86 100 12/18/16 02:00 126 12/18/16 01:00 126 12/18/16 00:00 130 22 111/86 100 12/18/16 00:00 118 12/17/16 23:00 120 12/17/16 22:00 132 12/17/16 21:00 132 12/17/16 20:00 135 12/17/16 19:45 128 22 122/65 100 12/17/16 19:00 140 12/17/16 18:01 126 12/17/16 17:01 120 12/17/16 16:01 128 12/17/16 15:45 97.8 111 18 122/60 100 12/17/16 15:00 128 12/17/16 14:00 128 12/17/16 13:00 124 12/17/16 12:01 132 12/17/16 11:30 98.0 145 20 123/72 100 12/17/16 11:00 134 12/17/16 10:00 136 (Laura Oneill) CBC/BMP: 12/18/16 0559 12/18/16 0559 Lab Results Laboratory Tests Test 12/18/16 05:59 White Blood Count 11.1 TH/MM3 Red Blood Count 3.85 MIL/MM3 Hemoglobin 10.7 GM/DL Hematocrit 33.1 % Mean Corpuscular Volume 86.0 FL Mean Corpuscular Hemoglobin 27.7 PG Mean Corpuscular Hemoglobin 32.2 % Concent Red Cell Distribution Width 15.0 % Platelet Count 147 TH/MM3 Mean Platelet Volume 8.4 FL Sodium Level 141 MEQ/L Potassium Level 4.0 MEQ/L Chloride Level 109 MEQ/L Carbon Dioxide Level 21.8 MEQ/L Anion Gap 10 MEQ/L Blood Urea Nitrogen 23 MG/DL Creatinine 1.34 MG/DL Estimat Glomerular Filtration 38 ML/MIN Rate Random Glucose 83 MG/DL Calcium Level 8.6 MG/DL Imaging Remarks Last Impressions Knee X-Ray 12/16/16 0000 Signed Impressions: Service Date/Time: Friday, December 16, 2016 04:16 - CONCLUSION: 1. No evidence of fracture. 2. Osteoarthritic findings of the knee with mild lateral compartment and patellofemoral compartment narrowing. 3. Chondrocalcinosis of the menisci noted. 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 Age-indeterminate proximal femur fracture. David Samuel MD Current Medications Active Medications Diltiazem HCl (Cardizem Cd) 180 mg DAILY PO Last administered on 12/18/16 08:46 ; Admin Dose 180 MG; Start 12/17/16 at 17:00 Enoxaparin Sodium (Lovenox Inj) 30 mg Q24H SQ Last administered on 12/17/16 17: 48; Admin Dose 30 MG; Start 12/17/16 at 17:00 Nebivolol (Bystolic) 10 mg DAILY PO Last administered on 12/18/16 08:46; Admin Dose 10 MG; Start 12/17/16 at 20:51 (Laura Oneill) Physical Exam General General Appearance: No Acute Distress, Comfortable (Laura Oneill) Eyes Eye Exam: Pupils Equal, Sclera White (Mai,Laura M. POLYMER TESTER) Ears & Nose Ears & Nose Exam: Nasal Mucosa [place] (Laura Oneill. POLYMER TESTER) Throat Throat Exam: Oral Mucosa [place] & Moist (Laura Oneill. POLYMER TESTER) Neck Neck Exam: Neck Supple, Trachea Midline (Laura Oneill. POLYMER TESTER) Pulmonary Resp Exam: Clear Bilaterally, Breath Sounds Equal, Diminished Breath Sounds ( Laura Oneill. POLYMER TESTER) Cardiology CV Exam: Irregular, Arrhythmia, Tachycardia (with exertion, but returns to normal) (Laura Oneill. POLYMER TESTER) Gastrointestinal/Abdomen GI Exam: Soft, Non-Tender, Bowel Sounds Present (Laura Oneill. POLYMER TESTER) Integumentary Skin Exam: Warm, Dry (Laura Oneill. POLYMER TESTER) Extremeties Extremities Exam: No Edema, Pedal Pulses Palpable (Laura Oneill. POLYMER TESTER) Neurologic Neuro Exam: Alert, Awake, Speech Clear, Moving All Extremities Neuro Remarks Pleasantly confused appears to be chronic/acute on chronic (Laura OneillP) VTE Prophylaxis VTE Prophylaxis Meds: Lovenox (Laura Oneill. POLYMER TESTER) Assessment/Plan Assessment/Plan ASSESSMENT 1. Right hip fracture. 2. Atrial fibrillation uncontrolled with rapid ventricular response. 3. History of hypertension 4. Hypotension this admission. 5. GERD. 6. COPD. 7. History of cardiovascular disease. 8. Osteoarthritis. 9. ARF / CKD , acute comp d/t dehydration , pre renal azotemia 10.UTI Plan Continue IV fluids Resume Bystolic/ and a dose of digoxin Monitor heart rate and blood pressure, heart rate waxes and wanes, low 107, still will increase depending on patient's anxiety and activity 120s and 130. Card input appreciated, patient has now been started on by mouth Cardizem, IV Cardizem plan is DC today possible IV analgesics Orthopedic consult noted/non-operative care is recommended. Subcutaneous Lovenox for DVT prophylaxis, adjust to creatinine clearance UTI, Proteus, sensitivity pending Continue IV Rocephin, follow sensitivity and adjust antibiotic. DC Pandey catheter, voiding without difficulty Pepcid PUD prophylaxis Haldol when necessary for agitation program services assistant for discharge planning/possible DC to SNF in few days, has spoke with family and have a couple of places to check. Patient was put on soft wrist restraints in the last 24 hours due to some agitation. Will work on DC today and monitoring closely for any acute needs. Vital signs and labs reviewed, hemoglobin stable at 10.7. Afebrile, blood pressure stable now, low 100s. Patient denies any dizziness, or any increased shortness of breath. Discussed with RN, case management per RN Discussed with Dr. Spears, patient seen on his behalf (Laura Oneill) Assessment/Plan pt is seen & examined, labs reviewed On IV cardizem , inc po cardizem to 240 mg qd/ cont BB ,will give One dose digoxin wean IV cardizem to off encourage po intake cont IV rocephin for one more day f/u renal function add seroquel for agitation/ sun downing ss for d.c planning/possible d/c to SNF in am will f/u d/w Laura (Otis Spears MD) Laura Oneill Dec 18, 2016 09:50 Otis Spears MD Dec 18, 2016 10:38
[2016-12-18] MEDS ORDERED: DIGOXIN 0.25 MG TAB PO ONE (11:15)
[2016-12-18] MEDS: QUEtiapine FUMARATE 25 MG TAB PO SCH (12:10)
[2016-12-18] MEDS: ENOXAPARIN SODIUM 30 MG/0.3 ML SYRINGE SQ SCH (17:00)
[2016-12-18] MEDS ORDERED: SODIUM CHLORID 0.9% 500 ML INJ 500 ML IV ONE (17:15)
[2016-12-18] MEDS: LATANOPROST 0.005% OPHT SOLN 2.5 ML BTL RIGHT EYE SCH (20:44)
[2016-12-18] MEDS: cefTRIAXone INJ 1,000 MG in SODIUM CHLORIDE 0.9% INJ 100 ML IV SCH (20:44)
[2016-12-19] VITALS (29 sets, daily range): BP systolic 102–125; BP diastolic 58–75; PULSE 80–156; RESP 18; TEMP 97.5–98.2; O2SAT 95–100
[2016-12-19] MEDS ORDERED: DILTIAZEM HCL 30 MG TAB PO ONE (03:30)
[2016-12-19] MEDS ORDERED: SODIUM CHLORID 0.9% 500 ML INJ 500 ML IV ONE (03:30)
[2016-12-19] MEDS: SODIUM CHLOR 0.9% 1000 ML INJ 1,000 ML IV SCH (04:59)
[2016-12-19] MEDS: QUEtiapine FUMARATE 25 MG TAB PO SCH ×2 (07:14→21:00)
[2016-12-19] MEDS: BRINZOLAMIDE RIGHT EYE SCH (07:14)
[2016-12-19 07:16] LABS: BICARBONATE 18.9 MEQ/L (21.0-32.0); POTASSIUM 3.9 MEQ/L (3.5-5.1)
[2016-12-19] MEDS: RESP: BUDESONIDE 0.25 MG/2 ML NEB INH SCH (07:56)
[2016-12-19] MEDS: NEBIVOLOL 10 MG TAB PO SCH (08:15)
[2016-12-19] MEDS: FLUTICASONE PROPIONATE 50 MCG/ACT 16 GM NASAL SPRAY SCH (08:16)
[2016-12-19] MEDS: FAMOTIDINE 20 MG/2 ML VIAL IV PUSH SCH ×2 (08:16→20:57)
[2016-12-19] MEDS: ACETAMINOPHEN/HYDROcodone 325 MG/7.5 MG TAB PO PRN ×2 (08:16→20:52)
[2016-12-19] MEDS: SODIUM CHLORIDE 0.9% FLUSH 5 ML FLUSH FLUSH SCH (08:17)
[2016-12-19] MEDS ORDERED: DILTIAZEM-CD 240 MG CAP ER PO SCH (09:00)
--- NOTE | 2016-12-19 10:29 | HHI.PR ---
Subjective History of Present Illness less confused / more coherrent I am ok thigh pain is ok /pain meds are helping no fever or chills No chest pain No shortness of breath poor appetite No nausea or vomiting Abdominal pain Appetite is okay Offers no complaints Review of Systems Constitutional Constitutional: Weakness (generalized) Vitals/Results Intake & Output 12/18/16 12/18/16 12/19/16 15:00 23:00 07:00 Intake Total 1825 ml 1940 ml Output Total 250 ml 350 ml Balance 1575 ml 1590 ml Intake Oral 240 ml 240 ml IV Total 1585 ml 1700 ml Output Urine Total 250 ml 350 ml Vital Signs Vital Signs Date Time Temp Pulse Resp B/P Pulse Ox O2 Delivery O2 Flow Rate FiO2 12/19/16 10:09 132 12/19/16 09:16 16 12/19/16 09:00 156 12/19/16 08:00 134 12/19/16 07:30 98.1 95 18 125/72 95 12/19/16 07:00 119 12/19/16 06:00 125 12/19/16 05:00 119 12/19/16 04:53 97.5 124 18 121/74 100 12/19/16 04:00 136 12/19/16 03:00 138 12/19/16 02:00 132 12/19/16 01:00 112 12/19/16 00:00 114 12/18/16 23:20 97.7 114 18 103/75 98 12/18/16 23:00 130 12/18/16 22:00 118 12/18/16 21:00 114 12/18/16 20:00 114 12/18/16 19:41 97.5 111 18 113/66 95 12/18/16 19:00 105 12/18/16 18:10 113 12/18/16 17:10 115 12/18/16 16:32 114 12/18/16 15:22 97.6 113 18 114/71 95 12/18/16 15:00 112 12/18/16 14:16 121 12/18/16 13:47 109 12/18/16 12:19 104 12/18/16 11:53 97.6 113 18 114/71 95 12/18/16 11:00 135 CBC/BMP: 12/18/16 0559 12/19/16 0530 Lab Results Laboratory Tests Test 12/19/16 05:30 Sodium Level 143 MEQ/L Potassium Level 3.9 MEQ/L Chloride Level 114 MEQ/L Carbon Dioxide Level 18.9 MEQ/L Anion Gap 10 MEQ/L Blood Urea Nitrogen 20 MG/DL Creatinine 1.08 MG/DL Estimat Glomerular Filtration 48 ML/MIN Rate Random Glucose 81 MG/DL Calcium Level 8.5 MG/DL Physical Exam General General Appearance: No Acute Distress, Comfortable Eyes Eye Exam: Pupils Equal, Sclera White Ears & Nose Ears & Nose Exam: Nasal Mucosa [place] Throat Throat Exam: Oral Mucosa [place] & Moist Neck Neck Exam: Neck Supple, Trachea Midline Pulmonary Resp Exam: Clear Bilaterally, Breath Sounds Equal, Diminished Breath Sounds Cardiology CV Exam: Irregular, Arrhythmia, Tachycardia (with exertion, but returns to normal) Gastrointestinal/Abdomen GI Exam: Soft, Non-Tender, Bowel Sounds Present Musculoskeletal MS Remarks Mild swelling over the right hip/right thigh, positive tenderness. b/l pedal edema Integumentary Skin Exam: Warm, Dry Extremeties Extremities Exam: No Edema, Pedal Pulses Palpable Neurologic Neuro Exam: Alert, Awake, Speech Clear, Moving All Extremities Neuro Remarks Forgetful and confused VTE Prophylaxis VTE Prophylaxis Meds: Lovenox Assessment/Plan Assessment/Plan ASSESSMENT 1. Right hip fracture. 2. Atrial fibrillation uncontrolled with rapid ventricular response. 3. History of hypertension 4. Hypotension this admission. 5. GERD. 6. COPD. 7. History of cardiovascular disease. 8. Osteoarthritis. 9. ARF / CKD , acute comp d/t dehydration , pre renal azotemia 10.UTI PLAN d/c IVF will give 1 dose Lasix for pedal edema cont cardizem , inc dose 300 mg qd/ Bistolic , will give 1 dose dig for rate control start Eliquis 2.5 mg bid for T/E prophylaxis BP control 'encourage po intake d/w IV rocephin /start po ceftin f/u renal function improving Duneb advair reduce seroquel for agitation to qhs pepcid d/w Pandey catheter this afternoon ,watch for voiding d/w RN ss for d.c planning/possible d/c to SNF in am will f/u Otis Spears MD Dec 19, 2016 10:29
[2016-12-19] MEDS ORDERED: FUROSEMIDE 20 MG/2 ML VIAL IV PUSH ONE (11:00)
[2016-12-19] MEDS ORDERED: DIGOXIN 0.25 MG TAB PO ONE (11:00)
[2016-12-19] MEDS ORDERED: POTASSIUM CHLORIDE 20 MEQ CONTROLLED RELEASE TAB PO ONE (11:00)
[2016-12-19] MEDS: APIXABAN 2.5 MG TABLET PO SCH (20:53)
[2016-12-19] MEDS: cefTRIAXone INJ 1,000 MG in SODIUM CHLORIDE 0.9% INJ 100 ML IV SCH (20:57)
[2016-12-19] MEDS: LATANOPROST 0.005% OPHT SOLN 2.5 ML BTL RIGHT EYE SCH (21:00)
[2016-12-20] VITALS (28 sets, daily range): BP systolic 103–118; BP diastolic 54–71; PULSE 84–148; RESP 18–20; TEMP 97.9–98.3; O2SAT 94–100
[2016-12-20] MEDS: ACETAMINOPHEN/HYDROcodone 325 MG/7.5 MG TAB PO PRN (04:46)
[2016-12-20 07:16] LABS: HEMATOCRIT 27.7 % (35.0-46.0); MEAN CELL VOLUME 84.6 FL (80.0-100.0); PLATELET COUNT 146 TH/MM3 (150-450); RED BLOOD COUNT 3.28 MIL/MM3 (4.00-5.30); RED CELL DISTRIBUTION WIDTH 15.1 % (11.6-17.2); REVIEW FLAG FINAL; WHITE BLOOD COUNT 7.9 TH/MM3 (4.0-11.0)
[2016-12-20 07:27] LABS: BICARBONATE 23.9 MEQ/L (21.0-32.0); POTASSIUM 3.9 MEQ/L (3.5-5.1)
[2016-12-20] MEDS: RESP: BUDESONIDE 0.25 MG/2 ML NEB INH SCH ×2 (08:30→08:56)
[2016-12-20] MEDS: CEFUROXIME AXETIL 500 MG TAB PO SCH ×2 (08:54→22:07)
[2016-12-20] MEDS: APIXABAN 2.5 MG TABLET PO SCH ×2 (08:54→22:07)
[2016-12-20] MEDS: DILTIAZEM-CD 300 MG CAP ER PO SCH (08:55)
[2016-12-20] MEDS: NEBIVOLOL 10 MG TAB PO SCH (08:55)
[2016-12-20] MEDS: FAMOTIDINE 20 MG/2 ML VIAL IV PUSH SCH ×2 (08:55→22:06)
[2016-12-20] MEDS: FLUTICASONE PROPIONATE 50 MCG/ACT 16 GM NASAL SPRAY SCH (08:55)
[2016-12-20] MEDS: BRINZOLAMIDE RIGHT EYE SCH (09:00)
--- NOTE | 2016-12-20 13:00 | HHI.PR ---
Subjective History of Present Illness feels better thigh pain is ok /pain meds are helping sat on the side of the bed w PT today no fever or chills No chest pain No shortness of breath HR is still fluctuating , currently 90s to 100s poor appetite No nausea or vomiting Abdominal pain Appetite is okay Offers no complaints Review of Systems Constitutional Constitutional: Weakness (generalized) Vitals/Results Intake & Output 12/19/16 12/19/16 12/20/16 15:00 23:00 07:00 Intake Total 720 ml Output Total 1600 ml 350 ml Balance -880 ml -350 ml Intake Oral 720 ml Output Urine Total 1600 ml 350 ml Vital Signs Vital Signs Date Time Temp Pulse Resp B/P Pulse Ox O2 Delivery O2 Flow Rate FiO2 12/20/16 11:30 98.0 106 20 117/71 98 12/20/16 11:01 122 12/20/16 10:00 138 12/20/16 09:00 140 12/20/16 08:45 97.9 131 18 114/70 95 12/20/16 08:00 148 12/20/16 07:00 128 12/20/16 06:00 128 12/20/16 05:00 116 12/20/16 04:40 98.0 128 18 118/60 100 12/20/16 04:00 146 12/20/16 03:00 128 12/20/16 02:00 118 12/20/16 01:00 118 12/20/16 00:00 136 12/19/16 23:00 108 12/19/16 22:00 110 12/19/16 22:00 98.2 118 18 102/58 100 12/19/16 21:00 96 12/19/16 20:00 98 12/19/16 19:20 98.2 108 18 120/75 96 12/19/16 19:00 94 12/19/16 18:08 96 12/19/16 17:15 90 12/19/16 16:12 94 12/19/16 15:15 98.2 80 18 118/66 96 12/19/16 15:11 104 12/19/16 14:07 103 12/19/16 13:02 101 CBC/BMP: 12/20/16 0625 12/20/16 0625 Lab Results Laboratory Tests Test 12/20/16 06:25 White Blood Count 7.9 TH/MM3 Red Blood Count 3.28 MIL/MM3 Hemoglobin 9.2 GM/DL Hematocrit 27.7 % Mean Corpuscular Volume 84.6 FL Mean Corpuscular Hemoglobin 28.0 PG Mean Corpuscular Hemoglobin 33.0 % Concent Red Cell Distribution Width 15.1 % Platelet Count 146 TH/MM3 Mean Platelet Volume 8.3 FL Sodium Level 142 MEQ/L Potassium Level 3.9 MEQ/L Chloride Level 111 MEQ/L Carbon Dioxide Level 23.9 MEQ/L Anion Gap 7 MEQ/L Blood Urea Nitrogen 19 MG/DL Creatinine 1.21 MG/DL Estimat Glomerular Filtration 42 ML/MIN Rate Random Glucose 98 MG/DL Calcium Level 8.5 MG/DL Physical Exam General General Appearance: No Acute Distress, Comfortable Eyes Eye Exam: Pupils Equal, Sclera White Ears & Nose Ears & Nose Exam: Nasal Mucosa [place] Throat Throat Exam: Oral Mucosa [place] & Moist Neck Neck Exam: Neck Supple, Trachea Midline Pulmonary Resp Exam: Clear Bilaterally, Breath Sounds Equal, Diminished Breath Sounds Cardiology CV Exam: Irregular, Arrhythmia, Tachycardia (with exertion, but returns to normal) Gastrointestinal/Abdomen GI Exam: Soft, Non-Tender, Bowel Sounds Present Musculoskeletal MS Remarks Mild swelling over the right hip/right thigh, positive tenderness. b/l pedal edema Integumentary Skin Exam: Warm, Dry Extremeties Extremities Exam: No Edema, Pedal Pulses Palpable Neurologic Neuro Exam: Alert, Awake, Speech Clear, Moving All Extremities Neuro Remarks Forgetful and confused VTE Prophylaxis VTE Prophylaxis Meds: Lovenox Assessment/Plan Assessment/Plan ASSESSMENT 1. Right hip fracture. 2. Atrial fibrillation uncontrolled with rapid ventricular response. 3. History of hypertension 4. Hypotension this admission. 5. GERD. 6. COPD. 7. History of cardiovascular disease. 8. Osteoarthritis. 9. ARF / CKD , acute comp d/t dehydration , pre renal azotemia 10.UTI PLAN cont cardizem , inc dose 360 mg qd/ Bystolic 10 mg qd Eliquis 2.5 mg bid for T/E prophylaxis BP control 'encourage po intake po ceftin f/u renal function stable Duneb advair seroquel for agitation to hs pepcid medicallys table for d. c to SNF ' see Orders see MRS see HRS d/w PT d/w Otis Fraga MD Dec 20, 2016 12:59
[2016-12-20] MEDS ORDERED: APIX2.5T PO (13:08)
[2016-12-20] MEDS ORDERED: HYDR-3580 PO (13:08)
[2016-12-20] MEDS ORDERED: CARD360C PO (13:08)
[2016-12-20] MEDS ORDERED: CEFT500T3 PO (13:08)
[2016-12-20] MEDS ORDERED: QUET1TAB7 PO (13:08)
[2016-12-20] MEDS ORDERED: DIGOXIN 0.25 MG TAB PO ONE (14:00)
[2016-12-20] MEDS ORDERED: MILKSUS PO (14:54)
[2016-12-20] MEDS ORDERED: MAGNESIUM HYDROXIDE SUSP 30 ML CUP PO ONE (17:45)
[2016-12-20] MEDS: LATANOPROST 0.005% OPHT SOLN 2.5 ML BTL RIGHT EYE SCH (21:00)
[2016-12-20] MEDS: SODIUM CHLORIDE 0.9% FLUSH 5 ML FLUSH FLUSH SCH ×2 (21:00→22:07)
[2016-12-20] MEDS: QUEtiapine FUMARATE 25 MG TAB PO SCH (22:07)
[2016-12-21] VITALS (14 sets, daily range): BP systolic 106–126; BP diastolic 68–79; PULSE 92–118; RESP 16–18; TEMP 98–98.3; O2SAT 95–96
[2016-12-21] MEDS: APIXABAN 2.5 MG TABLET PO SCH (08:30)
[2016-12-21] MEDS: DILTIAZEM-CD 300 MG CAP ER PO SCH (08:30)
[2016-12-21] MEDS: CEFUROXIME AXETIL 500 MG TAB PO SCH (08:30)
[2016-12-21] MEDS: NEBIVOLOL 10 MG TAB PO SCH (08:30)
[2016-12-21] MEDS: SODIUM CHLORIDE 0.9% FLUSH 5 ML FLUSH FLUSH SCH (08:31)
[2016-12-21] MEDS: FAMOTIDINE 20 MG/2 ML VIAL IV PUSH SCH (08:31)
[2016-12-21] MEDS: FLUTICASONE PROPIONATE 50 MCG/ACT 16 GM NASAL SPRAY SCH (08:32)
[2016-12-21] MEDS: BRINZOLAMIDE RIGHT EYE SCH (08:41)
--- NOTE | 2016-12-21 09:28 | HHI.PR ---
Subjective Subjective Remarks small BM, firm "pellets" per nursing no cp no sob afib on monitor, HR 120s anxious asking if she is leaving today passing gas, asking to get up to commode eating ok Review of Systems Constitutional Constitutional: Weakness (generalized) Constitutional Remarks 12 point ROS completed, unreliable Vitals/Results Intake & Output 12/20/16 12/20/16 12/21/16 15:00 23:00 07:00 Intake Total 600 ml 240 ml Balance 600 ml 240 ml Intake Oral 600 ml 240 ml # Voids 2 3 # Bowel Movements 0 0 Vital Signs Vital Signs Date Time Temp Pulse Resp B/P Pulse Ox O2 Delivery O2 Flow Rate FiO2 12/21/16 09:00 112 12/21/16 08:00 118 12/21/16 07:30 98.1 105 16 126/79 95 12/21/16 07:00 101 12/21/16 06:00 102 12/21/16 05:00 108 12/21/16 04:00 100 12/21/16 04:00 98.0 108 18 110/68 96 12/21/16 03:00 110 12/21/16 02:00 106 12/21/16 01:00 113 12/21/16 00:00 98.3 100 18 106/70 96 12/21/16 00:00 100 12/20/16 23:00 97 12/20/16 22:00 88 12/20/16 21:00 95 12/20/16 20:00 103 12/20/16 20:00 98.0 103 18 113/66 95 12/20/16 19:00 93 12/20/16 18:40 119 12/20/16 17:01 101 12/20/16 16:00 96 12/20/16 15:45 98.3 84 18 103/54 94 12/20/16 15:00 96 12/20/16 14:00 114 12/20/16 13:00 104 12/20/16 12:00 108 12/20/16 11:30 98.0 106 20 117/71 98 12/20/16 11:01 122 12/20/16 10:00 138 CBC/BMP: 12/20/16 0625 12/20/16 0625 Physical Exam General General Appearance: No Acute Distress, Comfortable Eyes Eye Exam: Pupils Equal, Pupils Reactive, Sclera White Ears & Nose Ears & Nose Exam: Nasal Mucosa [place] Throat Throat Exam: Oral Mucosa [place] & Moist Neck Neck Exam: Neck Supple, Trachea Midline Pulmonary Resp Exam: Breath Sounds Equal, Diminished Breath Sounds Cardiology CV Exam: Irregular, Arrhythmia, Tachycardia Gastrointestinal/Abdomen GI Exam: Soft, Non-Tender, Bowel Sounds Present, Non-Distended Musculoskeletal MS Exam: Joints Intact Integumentary Skin Exam: Warm, Dry Extremeties Extremities Exam: Pedal Pulses Palpable, Trace Edema Neurologic Neuro Exam: Alert, Awake, Speech Clear, Moving All Extremities, No Focal Deficits Psychiatric Psych Exam: Appropriate Responses VTE Prophylaxis VTE Remarks Eliquis Assessment/Plan Assessment/Plan ASSESSMENT 1. Right hip fracture. 2. Atrial fibrillation uncontrolled with rapid ventricular response. 3. History of hypertension 4. Hypotension this admission. 5. GERD. 6. COPD. 7. History of cardiovascular disease. 8. Osteoarthritis. 9. ARF / CKD , acute comp d/t dehydration , pre renal azotemia 10.UTI PLAN appreciate ortho input, non surgical tx of fracture cont cardizem , inc dose 360 mg qd/ Bystolic 10 mg qd Eliquis 2.5 mg bid for T/E prophylaxis BP control po ceftin, UTI proteus mirabilis f/u renal function stable Duneb advair seroquel for agitation qhs pepcid needs to have BM before dc will add Lactulose x 1 now Discharge to SNF today after she has BM F/U ortho Diet-heart healthy Activity per ortho D/W RN D/W pt D/W Dr. Spears This patient was seen by myself and Dr. Spears, this note is written on his behalf. Leda Awad Dec 21, 2016 09:28
[2016-12-21] MEDS ORDERED: LACTULOSE SYRUP 20 GM/30 ML CUP PO ONE (09:30)
[2016-12-21] MEDS: RESP: BUDESONIDE 0.25 MG/2 ML NEB INH SCH (09:48)
--- NOTE | 2016-12-22 14:55 | HHI.DS ---
Discharge Summary Admission Date Dec 16, 2016 at 06:34 Discharge Date: Dec 21, 2016 Admitting Diagnosis atrial fibrillation, femur fracture (1) Fracture, proximal femur (2) Atrial fibrillation with RVR (3) UTI (urinary tract infection) CBC/BMP: 12/20/16 0625 12/20/16 0625 Significant Findings Laboratory Tests Test 12/20/16 06:25 Red Blood Count 3.28 MIL/MM3 (4.00-5.30) Hemoglobin 9.2 GM/DL (11.6-15.3) Hematocrit 27.7 % (35.0-46.0) Platelet Count 146 TH/MM3 (150-450) Chloride Level 111 MEQ/L (98-107) Blood Urea Nitrogen 19 MG/DL (7-18) Creatinine 1.21 MG/DL (0.50-1.00) Estimat Glomerular Filtration 42 ML/MIN (>89) Rate Imaging Last Impressions Knee X-Ray 12/16/16 0000 Signed Impressions: Service Date/Time: Friday, December 16, 2016 04:16 - CONCLUSION: 1. No evidence of fracture. 2. Osteoarthritic findings of the knee with mild lateral compartment and patellofemoral compartment narrowing. 3. Chondrocalcinosis of the menisci noted. 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 Age-indeterminate proximal femur fracture. David Samuel MD Hospital Course This is a pleasant 81-year-old white female who had been in her usual state of health. She got up to use the bedside commode. When she was finished she went to empty it in the bathroom and also recalls walking through her living area. When she was turning around in her bedroom she got her feet tangled up in the carpet and went down to the floor. She reported severe pain in both hips, right being worse than left. She did not have any type of dizziness or syncopal episode. The patient was on Eliquis and has a significant history of atrial fibrillation. When examined the patient was also noted to have a tachycardic irregular rhythm. Heart rate has been in the 140s and 150 range in the emergency room. The patient was bolused with Cardizem x2 and was also an 180 mg p.o. dose. Drip was started at 5 mg per hour at 0645. Between 0730 and 0745 the patient's blood pressure dropped to 75 systolic. The Cardizem drip was turned off and head of bed placed in Trendelenburg position. The patient was given IVF at 100/hr. BP improved to 100. The patient denied any chest pain. Denied any shortness of breath. Denied any headache. The patient was not using a walker at the time she fell. The patient denied any cough. No recent weight gain or weight loss. The patient denied any dysuria. Pt. evaluated in the ED. Hip and pelvic x-rays show right total hip prosthesis in place with a proximal femur fracture. Right knee x-ray shows total knee replacement on the right. Bone alignment within normal limits. No evidence of fracture. Left knee x-ray shows no evidence of fracture. Osteoarthritis. Pt. admitted for: 1. Right hip fracture. 2. Atrial fibrillation uncontrolled with rapid ventricular response. 3. History of hypertension 4. Hypotension this admission. 5. GERD. 6. COPD. 7. History of cardiovascular disease. 8. Osteoarthritis. During the course the of the hospitalization, the following place Patient put on IV fluids and appropriate pain management Cardiology and orthopedics were consulted Continue Cardizem drip Patient put on appropriate DVT in GI prophylaxis appreciated ortho input, non surgical tx of fracture Cardiology evaluated recommendations were made Cardizem drip discontinued, put on by mouth Cardizem and dose increased to 360 by mouth daily. Was continued on by systolic to milligrams by mouth daily. Continued on Eliquis 2.5 mg bid for T/E prophylaxis BP control Was found with UTI, put on by mouth Ceftin. Culture was positive for proteus mirabilis Renal function stable Duonebs and advair ordered seroquel for agitation [facility] Case management consulted for discharge planning Patient needed to have a BM before discharge Lactulose was given and patient did have BM Patient was discharge to SNF in stable condition, A. fib was controlled Instructed to: F/U ortho Diet-heart healthy Activity per ortho Pt Condition on Discharge: Stable Discharge Disposition: Discharge to SNF Discharge Instructions DIET: Follow Instructions for: Heart Healthy Diet Fluid Restrictions: none Activities you can perform: Non Weight Bearing Follow up Referrals: Cardiology - 2 Weeks Orthopedics - 2 Weeks PCP Follow-up - 2 Weeks New Medications: Diltiazem CD 24 HR (Cardizem CD 24 HR) 360 Mg Caper 360 MG PO DAILY a fib #30 Ref 0 CAP Apixaban (Eliquis) 2.5 Mg Tab 2.5 MG PO BID clot prevention #60 TAB Cefuroxime (Ceftin) 500 Mg Tab 500 MG PO Q12HR uti #10 TAB Hydrocodone-Acetaminophen (Hydrocodone-Acetaminophen) 7.5-325 mg Tab 1 TAB PO Q4H PRN pain 6 to 10 #40 TAB Quetiapine (Quetiapine) 25 Mg Tab 25 MG PO HS agitation #15 TAB Continued Medications: Bimatoprost (Lumigan) 0.01 % Peg 1 DROP RIGHT EYE HS #2.5 ML Brinzolamide (Azopt) 1 % Marjorie 1 DROP RIGHT EYE AM Budesonide (Pulmicort) 0.25 Mg/2 Ml Marjorie 0.25 MG INH DAILY Fluticasone Propionate (Flonase) 0.05 % Naspr 2 SPR NA DAILYPRN 2 SPRAYS EACH NOSTRIL Magnesium Hydroxide Liq (Milk of Magnesia Liq) 400 Mg/5 Ml Susp 30 MG PO DAILY PRN CONSTIPATION #1 Ref 0 BOTTLE Miscellaneous (Stool Softener) 100 Mg Cap 100 MG PO DIRECTED Nebivolol Hcl (Bystolic) 10 Mg Tab 10 MG PO DAILY Raloxifene Hcl (Evista) 60 Mg Tab 60 MG PO DAILY Ranitidine 150 mg (Ranitidine 150 mg) 150 Mg Cap 150 MG PO Discontinued Medications: Diltiazem Cd 180 mg (Diltiazem Cd 180 mg) 180 Mg Cap 180 MG OR DAILY Tramadol Hcl (Tramadol Hcl) 50 Mg Tab 50 MG PO DIRECTED Triamterene & Hydrochlorothiaz (Dyazide) 37.5 Mg/25 Mg Cap 37.5 - PO DAILY 37.5MG/25MG 1 TAB DAILY Leda Awad Dec 22, 2016 14:55
== END 2016-12-21 14:17 | DRG 308 ==
LOC: NEPC 03:47 → NEDA 06:34 → HCIN 09:05
PROVIDERS: ADMIT Specialist; ATTEND Specialist
DX: I48.1 Persistent atrial fibrillation (principal); S72.121A Displaced fracture of lesser trochanter of right femur, initial encounter for closed fracture; N17.9 Acute kidney failure, unspecified; I95.9 Hypotension, unspecified; N39.0 Urinary tract infection, site not specified; F03.90 Unspecified dementia, unspecified severity, without behavioral disturbance, psychotic disturbance, mood disturbance, and anxiety; J44.9 Chronic obstructive pulmonary disease, unspecified; M97.01XA Periprosthetic fracture around internal prosthetic right hip joint, initial encounter; E86.0 Dehydration; I48.91 Unspecified atrial fibrillation; E66.9 Obesity, unspecified; K21.9 Gastro-esophageal reflux disease without esophagitis; N18.9 Chronic kidney disease, unspecified; M19.90 Unspecified osteoarthritis, unspecified site; J45.909 Unspecified asthma, uncomplicated; R32 Unspecified urinary incontinence; I12.9 Hypertensive chronic kidney disease with stage 1 through stage 4 chronic kidney disease, or unspecified chronic kidney disease; F41.9 Anxiety disorder, unspecified; B96.4 Proteus (mirabilis) (morganii) as the cause of diseases classified elsewhere; R60.0 Localized edema; W18.30XA Fall on same level, unspecified, initial encounter; Y92.002 Bathroom of unspecified non-institutional (private) residence as the place of occurrence of the external cause; Z68.34 Body mass index [BMI] 34.0-34.9, adult; Z78.1 Physical restraint status; Z79.01 Long term (current) use of anticoagulants; Z80.6 Family history of leukemia; Z82.3 Family history of stroke; Z87.891 Personal history of nicotine dependence; Z91.040 Latex allergy status; Z96.619 Presence of unspecified artificial shoulder joint; Z96.651 Presence of right artificial knee joint
CPT/HCPCS: 73501; 73560; 76937; 80048; 80053; 81001; 85025; 85027; 85610; 85730; 87077; 87086; 87186; 93005; 94640; 94664; 96374; 96376; J0696; J1160; J1650; J1940; J7030; J7040; J7626